=== PATIENT | female | born 1980 | race Caucasian/White ===

== ENCOUNTER 2016-12-11 21:31 | Emergency (ER) | payer OTHER ==
[~2016-12-11 21:31] MED LIST: ALPRAZOLAM PO; ARICEPT23 MG PO; AURALGAN OTIC S10 M1 OT; BACITRACIN30 GM TOP; BACTRIM DS TABL1 TA1 PO; BACTRIM DS TABL1 TAB PO; BUSPAR PO; CELEXA20 MG PO; CIPRO PO; CLEOCIN PO; CLEOCIN150 MG PO; CORTISPORIN-TC10 M1 OT; E-MYCIN250 MG PO; ERY-TAB333 M1 PO; IBUPROFEN PO; KEFLEX PO; KETOPROFEN PO; LIDOCAINE HC20 MG/M1 MM; LIPITOR20 MG PO; LISINOPRIL5 MG PO; LORTAB 5/500 TA1 TA1 PO; MEDROL PO; METFORMIN PO; MOBIC PO; NAMENDA5 MG PO; NASAL SPRAY30 M1; NO MEDICATIONS; NORCO 10-325 TA1 TAB PO; PERCOCET 7.5-31 EACH PO; PHENERGAN PO; PHENERGAN25 MG PO; PRILOSEC20 M1 PO; SYNTHROID75 MCG PO; TRAZODONE HCL100 MG PO; ULTRAM PO; VIBRAMYCIN100 M1 PO; VOLTAREN75 MG PO
== END 2016-12-11 22:06 | disposition home or self-care (01) ==
LOC: SED 21:31
DX: L02.811 Cutaneous abscess of head [any part, except face] (principal); J45.909 Unspecified asthma, uncomplicated; F32.9 Major depressive disorder, single episode, unspecified; F17.210 Nicotine dependence, cigarettes, uncomplicated; Z88.0 Allergy status to penicillin; Z88.1 Allergy status to other antibiotic agents; Z91.041 Radiographic dye allergy status; Z98.51 Tubal ligation status
CPT/HCPCS: 96372; 99283